=== PATIENT | male | born 1980 | race Caucasian/White ===

== ENCOUNTER → 2024-01-14 14:08 | Outpatient (REF) | payer OTHER, SELFPAY | LOC: HWRAD 14:08 | PROVIDERS: ATTENDING PHYSICIAN Student in an Organized Health Care Education/Training Program | DX: R10.33 Periumbilical pain (principal) | CPT/HCPCS: 76705 ==

== ENCOUNTER 2025-05-08 17:25 | Emergency (ER) | payer OTHER, SELFPAY ==
[2025-05-08 17:28] VITALS: BP 123/65
[2025-05-08 17:49] LABS: Hematocrit 41.4 % (39.0-52.0); Hemoglobin 14.0 g/dL (13.0-18.0); Mean Corp Hgb Conc. 33.8 g/dL (33.0-37.0); Mean Corpuscular Volume 86.8 fL (80.0-94.0); Nucleated Red Blood Cells % 0 % (-); Platelet Count 223 10^3/uL (130-400); Red Cell Dist. Width 13.5 % (11.5-14.5)
--- NOTE | 2025-05-08 17:59 | ED.GENMED ---
History of Present Illness
General
Chief Complaint: Flank Pain
Source: patient
Exam Limitations: none
Time Seen by Provider: 05/08/25 17:48
Nursing documentation reviewed up to this point in time: agreed with
History of Present Illness
History of Present Illness:
Patient to the emergency department with complaint of severe left flank pain radiating to right groin. Symptoms started suddenly approximately 3 hours ago and continued to worsen. He has a prior history of kidney stones and feels that this pain is
very similar. He denies fever or chills but reports nausea and vomiting. Took ibuprofen prior to arrival without improvement
Past History
Past History
ED Past Medical History: Psychiatric (Anxiety)
ED Past Surgical History: Tonsilectomy
Review of Systems
Review of Systems
Allergies reviewed?: Yes
All Other Systems: ROS reviewed and negative except as documented in HPI and ROS
Constitutional: Reports no symptoms
EENT: Reports no symptoms
Respiratory: Reports no symptoms
Cardiac: Reports no symptoms
ABD/GI: Reports nausea and vomiting
: Reports flank pain (Severe right flank pain)
Musculoskeletal: Reports no symptoms
Skin: Reports no symptoms
Neurological: Reports no symptoms
Psychiatric: Reports no symptoms
Phy Exam
General Physical Exam
General Presentation: moderate distress
General age: appears stated age
General Skin: warm and dry
General Habitus: normal
General Mental: alert
Gastrointestinal Exam
Gastrointestinal Exam: normal bowel sounds, non tender, soft, no organomegaly, no pulsatile mass and non distended
Musculoskeletal Exam
Musculoskeletal Exam: full ROM
Skin Exam
Skin Exam: normal color, warm/dry and no rash
Psychiatric Exam
Psychiatric Exam: normal mood/affect
Course
Orders/Labs/Results
Orders:
Orders
05/08/25 17:43
CMP [Comprehensive Metabolic Panel] Urgent
Complete Blood Count/With Diff Urgent
Urinalysis Reflex To Culture Urgent
Date Specimen was Collected: 05/08/25
Time Specimen was Collected: 17:34
Urine Microscopic Reflex Cult Urgent
05/08/25 17:56
HYDROmorphone [Dilaudid] 0.5 mg IV NOW STA
Ondansetron Injectable [Zofran] 4 mg IV NOW STA
05/08/25 17:57
CT Abd/pel Without Iv Or Oral Urgent
Comment:
Reason For Exam: right flank pain
0.9% Sodium Chloride 1000 ml [Nss] 1,000 ml IV BOLUS
05/08/25 19:50
Cephalexin Monohydrate [Keflex] 500 mg PO NOW STA
Oxycodone [Roxicodone] 5 mg PO NOW STA
05/09/25 08:00
Tamsulosin [Flomax] 0.4 mg PO DAILY
Abnormal Lab Results
05/08/25
17:43
WBC 15.0 H 10^3/uL
(4.8-10.8)
Abs Immat Gran (auto) 0.1 H 10^3/uL
(0-0.05)
Absolute Neuts (auto) 13.2 H 10^3/uL
(1.4-6.5)
Absolute Lymphs (auto) 1.1 L 10^3/uL
(1.2-3.4)
Neutrophils % 87.8 H %
(42.2-75.2)
Lymphocytes % 7.5 L %
(20.5-51.1)
Glucose 128 H mg/dl
(70-99)
Calcium 10.3 H mg/dl
(8.4-10.2)
Urine Ketones 2+ A
(Negative)
Ur Occult Blood Reflex 4+ A
(Negative)
Urine Albumin (Reflex) 1+ A
(Neg - Trace)
05/08/25 17:43
05/08/25 17:43
Vital Signs
Initial and Last Documented VS:
Initial Vital Signs
Temp Pulse Resp BP Pulse Ox
98.1 F 84 20 123/65 100
05/08/25 17:28 05/08/25 17:28 05/08/25 17:28 05/08/25 17:28 05/08/25 17:28
Last Documented Vital Signs
Temp Pulse Resp BP Pulse Ox
98.1 F 84 20 123/65 100
05/08/25 17:28 05/08/25 17:28 05/08/25 17:28 05/08/25 17:28 05/08/25 18:00
*Radiology
Radiology exam reviewed: radiology read reviewed
*Pulse Oximetry
SaO2: 100
Oxygen Mode of Delivery: Room air
Patient hypoxic: no
*Critical Care Note
Total Time (30-74mins, 75-104mins- exclusive of procedures): Not Applicable
Update Note
Update Note:
Patient is in the emergency department for evaluation of right flank pain. Symptoms started few hours prior to arrival in ED. CT of abdomen and pelvis was completed in the ED, confirms a 3 mm obstructing proximal right ureter stone. UA reviewed,
results indeterminant. Will place on a course of Keflex pending culture result. He was given IV fluids and Dilaudid while in the ED. Good pain control. Discussed CT finding with him. He has a history of kidney stones and follows with urology
here at [place]. He will be discharged home tonight. Flomax 0.4 mg to be taken daily. He was given a prescription for a course of pain medication. He will continue to strain his urine. He will call urology in the a.m. for follow-up
appointment. He was given instructions on signs and symptoms to return to the emergency department and he is agreeable to this plan.
ED Attending Note
-
Portions of this chart may have been created with voice recognition software.� Occasional wrong word or��sound alike� substitutions may have occurred due to the inherent limitations of voice recognition software.
Discharge Plan
Departure
Patient Disposition: Home (Routine Discharge)
Date of Disposition: 05/08/25
Time of Disposition: 19:51
Patient with high blood pressure during this ER visit?: No
Condition: Good
Covid-19: Not Applicable
Discharge Problem:
Kidney stone
Instructions: Kidney Stones (DC), How to Strain Your Urine, Narcotic Pain Medication
Prescriptions:
New
oxycodone 5 mg capsule
5 mg PO Q4H PRN (Reason: Pain) Qty: 18 0RF
ondansetron HCl 4 mg tablet
4 mg PO TID PRN (Reason: nausea and vomiting) 4 Days Qty: 12 0RF
tamsulosin 0.4 mg capsule
0.4 mg PO DAILY Qty: 14 0RF
cephalexin 500 mg capsule
500 mg PO BID 7 Days Qty: 14 0RF
No Action
sertraline 50 mg Tablet
50 mg PO DAILY
sildenafil 25 mg Tablet
25 mg PO DAILY PRN (Reason: ED)
valacyclovir
1,000 mg PO PRN PRN (Reason: herpes)
acetaminophen [acetaminophen] 325 mg tablet
650 mg PO Q4HPRN PRN (Reason: mild pain) Qty: 1 0RF
ibuprofen 200 mg tablet
400 - 600 mg PO Q6HPRN PRN (Reason: moderate pain) Qty: 1 0RF
oxycodone 5 mg tablet
5 mg PO Q4HPRN PRN (Reason: breakthrough/severe pain) Qty: 15 0RF
Referrals:
Anthony Juares Jr., MD [Active, Urology] - Call in 1-3 days for appt
UNKNOWN - PT DOES,NOT KNOW [Unknown Provider]
Stand Alone Forms: Return to Work
Activity Restrictions/Additional Instructions:
Return to the emergency department immediately for fever/chills, pain that is not manageable at home, vomiting, or any further concerns.
Interventions
Interventions:
*Risk Screen - Suicide Last Done: 05/08/25 17:28
*General Assessment Last Done: 05/08/25 17:28
*ED COVID-19 Vaccine History Last Done: 05/08/25 17:28
*ED Influenza Vaccine History Last Done: 05/08/25 17:28
*Nursing Disposition Last Done: 05/08/25 20:33
HF-Ocixts-Wiobqxhcwn Assessment Last Done: 05/08/25 17:53
ED-Male Genitourinary Assessment Last Done: 05/08/25 17:54
Discharge Date and Time
Discharge Date/Time: 05/08/25 20:33
Print Language: MEXICAN
[2025-05-08 18:00] LABS: Urine Character Cloudy (Clear)
[2025-05-08] MEDS: ZOFRAN 4 MG IV (18:14)
[2025-05-08] MEDS: NSS 1000 IV (18:14)
[2025-05-08] MEDS: DILAUDID 0.5 MG IV (18:14)
[2025-05-08 18:15] LABS: AST (SGOT) 29 U/L (17-59); Albumin 5.0 g/dl (3.5-5.0); Alkaline Phosphatase 57 U/L (38-126); Blood Urea Nitrogen 13 mg/dl (9-20); Calcium 10.3 mg/dl (8.4-10.2); Carbon Dioxide 22 mmol/L (22-30); Chloride 102 mmol/L (98-107); Glucose 128 mg/dl (70-99); Potassium 3.8 mmol/L (3.5-5.1); Sodium 136 mmol/L (135-145); Total Protein 8.1 g/dl (6.3-8.2); eGFR > 60.00
[2025-05-08 18:26] LABS: ALT (SGPT) 38 U/L (0-50)
[2025-05-08] MEDS: ROXICODONE 5 MG PO (20:05)
[2025-05-08] MEDS: KEFLEX 500 MG PO (20:05)
== END 2025-05-08 20:33 | disposition home or self-care (01) ==
LOC: EMR 17:25
PROVIDERS: EMERGENCY PHYSICIAN Emergency Medicine; FAMILY PHYSICIAN Student in an Organized Health Care Education/Training Program
DX: N20.2 Calculus of kidney with calculus of ureter (principal); F41.9 Anxiety disorder, unspecified; Z87.442 Personal history of urinary calculi
CPT/HCPCS: 99284; 96374; 96375; 74176; 80053; 81003; 81015; 85025